=== PATIENT | female | born 2000 | race Hispanic/Latino ===

== ENCOUNTER 2022-07-12 11:13 | Emergency (ER) | payer OTHER ==
[~2022-07-12] VITALS: Ht 160 cm; Wt 65.8 kg
[2022-07-12 12:21] VITALS: BP 129/75
[2022-07-12] MEDS ORDERED: CIPR-278 PO (13:25)
[2022-07-12] MEDS ORDERED: TETANUS/DIPHTHERIA TOXOID [ADULT] 0.5 ML VIAL IM ONE (13:30)
== END 2022-07-12 13:35 | disposition home or self-care (01) ==
LOC: EDH 11:13
DX: S99.821A Other specified injuries of right foot, initial encounter (principal); J45.909 Unspecified asthma, uncomplicated; Z98.890 Other specified postprocedural states; X58.XXXA Exposure to other specified factors, initial encounter; Y93.89 Activity, other specified; Y92.89 Other specified places as the place of occurrence of the external cause; Y99.8 Other external cause status
CPT/HCPCS: 73630; 81025; 90471; 90714